=== PATIENT | female | born 1965 | race Caucasian/White ===

== ENCOUNTER 2021-04-22 01:40 | Emergency (ER) | payer OTHER ==
[2021-04-22] MEDS ORDERED: PERCOCET 5-3251 EACH PO (03:16)
[2021-04-22] MEDS ORDERED: DIFLUCAN150 MG PO (03:16)
[2021-04-22] MEDS ORDERED: VIBRAMYCIN100 MG PO (03:16)
== END 2021-04-22 03:28 | disposition home or self-care (01) ==
LOC: FER 01:40
DX: L02.11 Cutaneous abscess of neck (principal); I10 Essential (primary) hypertension; E11.9 Type 2 diabetes mellitus without complications; F17.210 Nicotine dependence, cigarettes, uncomplicated